=== PATIENT | female | born 1965 | race Caucasian/White ===

== ENCOUNTER 2018-07-26 08:19 | Day surgery (SDC) | payer BC ==
[2018-07-22 11:51] VITALS: BMI 22.4
[2018-07-26] MEDS ORDERED: BUPIVACAINE HCL/PF 2.5 MG/ML - 30 ML VIAL IJ ONE (10:05)
[2018-07-26] MEDS ORDERED: ceFAZolin SODIUM 1 GM VIAL ONE (10:17)
[2018-07-26] MEDS ORDERED: MIDAZOLAM HCL 2 MG/2 ML SINGLE DOSE VIAL ONE (10:17)
[2018-07-26] MEDS ORDERED: DEXAMETHASONE SOD PHOSPHATE 4 MG/1 ML VIAL ONE (10:17)
[2018-07-26] MEDS ORDERED: ONDANSETRON 4 MG/2 ML VIAL ONE (10:17)
[2018-07-26] MEDS ORDERED: KETOROLAC TROMETHAMINE 30 MG/1 ML VIAL ONE (10:18)
[2018-07-26] MEDS ORDERED: PROPOFOL 20 ML ONE (10:41)
[2018-07-26] MEDS ORDERED: BUPIVACAINE HCL/PF 0.25% (2.5MG/ML) 10 ML VIAL IJ ONE (11:12)
[2018-07-26] MEDS ORDERED: oxyCODONE HCL 5 MG TABLET PO PRN (11:28)
[2018-07-26 12:11] VITALS: PULSE 66; TEMP 98.4
[2018-07-26 12:52] VITALS: BP 112/70
--- NOTE | 2018-07-28 13:38 | OP ---
DATE OF OPERATION: 07/26/2018 LOCATION: [facility] SURGEON: Teja Bright MD UTILITY LOCATOR: CHE Ricks PREOPERATIVE DIAGNOSES: 1. Right knee medial and lateral meniscal ear. 2. Right knee cartilage injury. 3. Right knee synovitis. POSTOPERATIVE DIAGNOSES: 1. Right knee medial and lateral meniscal ear. 2. Right knee cartilage injury. 3. Right knee synovitis. PROCEDURE: 1. Right knee arthroscopy with partial meniscectomy of medial and lateral meniscus, CPT code 18861. 2. Right knee arthroscopy with chondroplasty and abrasion-plasty, CPT code 31980. 3. Right arthroscopy with synovectomy, CPT code 03837. FINDINGS: 1. Previous ACL reconstruction with graft intact. 2. Medial meniscus body and posterior horn tear. 3. Lateral meniscus posterior horn tear. 4. Synovitis of patellofemoral, medial and lateral notch tear. 5. 6. ACL and PCL intact. 7. Diffuse grade 1 to 2 cartilage injury medial joint line. 8. Central grade 2 to 4 cartilage injury, patellofemoral trochlea medial patellofemoral joint. PROCEDURE: Informed consent was obtained. The patient came to the operating room, where the lower extremity was prepped and draped in a sterile fashion. A tourniquet was placed on the upper thigh, but not inflated. Using standard arthroscopic technique, a lateral incision and portal was made to allow for introduction of the camera into the suprapatellar bursa. This was then taken to the medial joint line, where under direct visualization, a medial incision and portal was made. Excessive synovium noted in the medial, lateral and patellofemoral and notch area was removed by an upbiter, shaver and Bovie cautery. This was found to bring in inflammatory tissue into the joint surface, a source of pain and dysfunction. Probing of the medial and lateral meniscus found tears, as described in the findings. These were removed with the upbiter and shaver and taken back to a stable rim. Grade 2 to 3 degenerative changes were treated with a chondroplasty, removing all flaking surfaces with low-setting Bovie along the periphery to prevent further flaking. Grade 4 changes, as noted, were treated with an abrasoplasty, creating a bleeding surface at the bone/cartilage interface. Aggressive debridement with shaver/teofilo created bleeding surface. Micro fracture also done when indicated in findings. All areas of the knee were once again reexamined. The knee was then drained and a single suture was placed in all portals. A sterile dressing was placed and the patient was transferred to the recovery room without complication. The PA listed above was present and assisted at surgery. Their presence was absolutely medically necessary for the completion of the procedure. They helped hold the arthroscopy, pass instruments (and implants when indicated) and the procedure could not have been completed without their assistance. TEJA BRIGHT M.D. [id number]
== END 2018-07-26 13:00 | disposition home or self-care (01) ==
LOC: FASU 08:19
PROVIDERS: ATTEND Orthopaedic Surgery
PROC: 0SBC4ZZ Excision of Right Knee Joint, Percutaneous Endoscopic Approach (ICD-10-PCS; 2018-07-26)
PROC: 0SBC4ZZ Excision of Right Knee Joint, Percutaneous Endoscopic Approach (ICD-10-PCS; 2018-07-26)
PROC: 0SBC4ZZ Excision of Right Knee Joint, Percutaneous Endoscopic Approach (ICD-10-PCS; principal; 2018-07-26 09:30)
DX: S83.241A Other tear of medial meniscus, current injury, right knee, initial encounter (principal); S83.281A Other tear of lateral meniscus, current injury, right knee, initial encounter; S83.8X1A Sprain of other specified parts of right knee, initial encounter; M65.861 Other synovitis and tenosynovitis, right lower leg; X58.XXXA Exposure to other specified factors, initial encounter; Y93.9 Activity, unspecified; Y92.9 Unspecified place or not applicable
CPT/HCPCS: 94760